=== PATIENT | male | born 2000 | race Caucasian/White ===

== ENCOUNTER 2021-07-23 22:33 | Emergency (ER) | payer BC ==
[2021-07-23] MEDS ORDERED: Morphine 4 MG/ML VIAL ONE ×2 (22:39→22:59)
[2021-07-23] MEDS ORDERED: Sodium Chloride 0.9% 10 ML Syringe FLUSH PRN (22:44)
[2021-07-23] MEDS ORDERED: Sodium Chloride 0.9% 2.5 ML Syringe FLUSH PRN (22:44)
[2021-07-23] MEDS ORDERED: Sodium Chloride 0.9% 1,000 ML IV ONE (22:50)
[2021-07-23] MEDS ORDERED: Diphtheria,Pertussis(Acell),Tetanus Vaccine 0.5 ML Syringe ONE (22:52)
[2021-07-23] MEDS ORDERED: Ondansetron 4 MG/2 ML SDV ONE (22:59)
[2021-07-23] MEDS ORDERED: Tranexamic Acid 1,000 MG in Sodium Chloride 0.9% 100 ML IV ONE (23:06)
[2021-07-23 23:12] LABS: BLOOD UREA NITROGEN,BUN 25 mg/dL (7.0-18.0); ESTIMATED GFR 58.5 ml/min; GLUCOSE RANDOM 155 mg/dL (74-106)
[2021-07-23 23:33] LABS: CHLORIDE,CL 108 mmol/L (98-107); POTASSIUM,K 3.7 mmol/L (3.5-5.1); SODIUM,NA 145 mmol/L (136-148)
[2021-07-23] MEDS ORDERED: ceFAZolin 2 GM in Premix Bag 1 BAG IV ONE (23:33)
[2021-07-23] MEDS ORDERED: Ondansetron 4 MG/2 ML SDV IVPUSH ONE (23:34)
[2021-07-23] MEDS ORDERED: Morphine 4 MG/ML VIAL IVPUSH ONE (23:34)
[2021-07-23] MEDS ORDERED: Lactated Ringers 1,000 ML IV STA ×2 (23:40→23:41)
[2021-07-23] MEDS ORDERED: Diphtheria,Pertussis(Acell),Tetanus Vaccine 0.5 ML Syringe IM ONE (23:42)
[2021-07-23] MEDS ORDERED: Sodium Chloride 0.9% 1,000 ML IV SCH (23:45)
[2021-07-24 00:46] VITALS: BP 68/43; PULSE 53
[2021-07-24] MEDS ORDERED: Morphine 4 MG/ML VIAL IVPUSH ONE (02:00)
== END 2021-07-24 00:05 ==
LOC: MW.ED 22:33
DX: S21.131A Puncture wound without foreign body of right front wall of thorax without penetration into thoracic cavity, initial encounter (principal); S27.1XXA Traumatic hemothorax, initial encounter; Z88.1 Allergy status to other antibiotic agents; Z23 Encounter for immunization; Z20.822 Contact with and (suspected) exposure to COVID-19; W34.00XA Accidental discharge from unspecified firearms or gun, initial encounter
CPT/HCPCS: 32551; 36415; 36430; 71045; 71045-26; 80053; 80305-QW; 80307; 81001; 84484; 85025; 86850; 86900; 86901; 86920; 90471; 90715; 96365; 96367; 96375; 96376; 99285-25; 99291; J0690; J2270; J2405; J3490; J7030; J7050; J7120; P9016; U0002

== ENCOUNTER 2023-07-07 16:17 | Emergency (ER) | payer OTHER ==
[2023-07-07 18:15] VITALS: BP 131/88; PULSE 77
== END 2023-07-07 18:21 | disposition left against medical advice (07) ==
LOC: MW.ED 16:17
DX: Z53.21 Procedure and treatment not carried out due to patient leaving prior to being seen by health care provider (principal)

== ENCOUNTER 2024-01-18 11:20 | Emergency (ER) | payer OTHER ==
[2024-01-18] MEDS: Orphenadrine 60 MG/2 ML Inj IM ONE (12:32)
[2024-01-18] MEDS: Lidocaine 4% 1 each Patch TOP STA (12:33)
[2024-01-18] MEDS: Ketorolac 30 MG/ML SDV IM ONE (12:33)
[2024-01-18 14:32] VITALS: BP 121/57; PULSE 81
== END 2024-01-18 14:31 | disposition home or self-care (01) ==
LOC: MW.ED 11:20
DX: M54.50 Low back pain, unspecified (principal); Z75.8 Other problems related to medical facilities and other health care
CPT/HCPCS: 96372; 99283; A9270; J1885; J2360